=== PATIENT | female | born 1975 | race Caucasian/White ===

== ENCOUNTER → 2020-02-22 | Emergency (ER) | payer OTHER ==
[~2020-02-22] VITALS: Ht 172.7 cm; Wt 110.0 kg
[~2020-02-22] MED LIST: IV NORMAL SALINE 1,000ML 1,000 ML IV ONE; METOCLOPRAMIDE HCL 10 MG/2 ML VIAL. IVP ONE; diphenhydrAMINE 50 MG/ML VIAL IVP ONE
[2020-02-22 12:20] LABS: BASO # 0.1 x10^3/uL (0.0-0.2); BASO % 1 % (0-3); EOS # 0.4 x10^3/uL (0.0-0.7); EOS % 4 % (0-3); HEMATOCRIT 43.4 % (36.0-47.0); LYMPH # 3.2 x10^3/uL (1.0-4.8); LYMPH % 34 % (24-48); MEAN CORPUSCULAR HEMOGLOBIN 32 pg (25-35); MEAN CORPUSCULAR HGB CONC 35 g/dL (31-37); MEAN CORPUSCULAR VOLUME 91 fL (79-100); MONO # 0.4 x10^3/uL (0.0-1.1); MONO % 5 % (0-9); NEUT # 5.2 x10^3uL (1.8-7.7); NEUT % 57 % (31-73); PLATELET COUNT 366 x10^3/uL (140-400); RED BLOOD COUNT 4.76 x10^6/uL (3.50-5.40); RED CELL DISTRIBUTION WIDTH 12.6 % (11.5-14.5); WHITE BLOOD COUNT 9.3 x10^3/uL (4.0-11.0)
[2020-02-22 12:28] LABS: CALCIUM 9.4 mg/dL (8.5-10.1); CREATININE 0.8 mg/dL (0.6-1.0); GFR 78.7; POTASSIUM 4.6 mmol/L (3.5-5.1)
--- NOTE | 2020-02-22 12:33 | PHYS DOC ---
Past History Past Medical History: Cancer, CVA Past Surgical History: Cancer Surgery Alcohol Use: None Adult General Chief Complaint Chief Complaint: HEADACHE HPI HPI 44-year-old female presents with headache. 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 She was in a coma. This was a couple years ago. The patient was being followed in [place]. She just moved here and has not followed up with a neurologist yet. Patient has a headache today that she rates a 9 out of 10. It is a global pressure sensation. She is very concerned because this headache is similar to the headache she had when she had her bleeding aneurysm. She also had a left-sided mastectomy 2 weeks ago at . She has a lot of fluid collection in her chest area. A drain was not placed during surgery. Patient denies fever chills. She has had some vomiting. Review of Systems Review of Systems Constitutional: chills [] Eyes: Denies change in visual acuity, redness, or eye pain [] HENT: Denies nasal congestion or sore throat [] Respiratory: Denies cough or shortness of breath [] Cardiovascular: No additional information not addressed in HPI [] GI: nausea, vomiting. Denies abdominal pain, bloody stools or diarrhea [] : Denies dysuria or hematuria [] Musculoskeletal: Denies back pain or joint pain [] Integument: Denies rash or skin lesions [] Neurologic: Headache. Denies focal weakness or sensory changes [] Endocrine: Denies polyuria or polydipsia [] All other systems were reviewed and found to be within normal limits, except as documented in this note. Allergies Allergies Allergies Coded Allergies Type Severity Reaction Last Updated Verified penicillin G Allergy Mild 02/22/20 Yes Physical Exam Physical Exam Constitutional: Well developed, well nourished, no acute distress, non-toxic appearance. [] HENT: Normocephalic, atraumatic, bilateral external ears normal, oropharynx moist, no oral exudates, nose normal. [] Eyes: PERRLA, EOMI, conjunctiva normal, no discharge. [] Neck: Normal range of motion, no tenderness, supple, no stridor. [] Cardiovascular:Heart rate regular rhythm, no murmur [] Lungs & Thorax: Bilateral breath sounds clear to auscultation [] Abdomen: Bowel sounds normal, soft, no tenderness, no masses, no pulsatile masses. [] Skin: Warm, dry, no erythema, no rash. [] Back: No tenderness, no CVA tenderness. [] Extremities: No tenderness, no cyanosis, no clubbing, ROM intact, no edema. [] Neurologic: Alert and oriented X 3, normal motor function, normal sensory function, no focal deficits noted. [] Psychologic: Affect normal, judgement normal, mood normal. [] Current Patient Data Vital Signs Vital Signs Date Time Temp Pulse Resp B/P (MAP) Pulse Ox O2 Delivery O2 Flow Rate FiO2 02/22/20 12:12 98.4 82 20 155/100 (118) 99 Room Air Lab Results Laboratory Tests Test 02/22/20 12:08 White Blood Count 9.3 x10^3/uL (4.0-11.0) Red Blood Count 4.76 x10^6/uL (3.50-5.40) Hemoglobin 15.0 g/dL (12.0-15.5) Hematocrit 43.4 % (36.0-47.0) Mean Corpuscular Volume 91 fL (79-100) Mean Corpuscular Hemoglobin 32 pg (25-35) Mean Corpuscular Hemoglobin Concent 35 g/dL (31-37) Red Cell Distribution Width 12.6 % (11.5-14.5) Platelet Count 366 x10^3/uL (140-400) Neutrophils (%) (Auto) 57 % (31-73) Lymphocytes (%) (Auto) 34 % (24-48) Monocytes (%) (Auto) 5 % (0-9) Eosinophils (%) (Auto) 4 % (0-3) H Basophils (%) (Auto) 1 % (0-3) Neutrophils # (Auto) 5.2 x10^3uL (1.8-7.7) Lymphocytes # (Auto) 3.2 x10^3/uL (1.0-4.8) Monocytes # (Auto) 0.4 x10^3/uL (0.0-1.1) Eosinophils # (Auto) 0.4 x10^3/uL (0.0-0.7) Basophils # (Auto) 0.1 x10^3/uL (0.0-0.2) EKG EKG [] Radiology/Procedures Radiology/Procedures [] Impressions: CT Head W/O Contrast: History: Headache Comparison: none Axial images were obtained without contrast. The coates and white matter appears normal and symmetrical for the patients age. There is no mass effect, extraaxial fluid collections or hydrocephalus. There is no gross bleed. There is no focal loss of coates-white matter distinction to suggest acute ischemia, i.e. stroke. There is beam Perkins artifact from prior coiling of an aneurysm at the [place]. Impression: No acute findings. RS Compliance Statement: One or more of the following individualized dose reduction techniques were utilized for this examination: 1. Automated exposure control 2. Adjustment of the mA and/or kV according to patient size 3. Use of iterative reconstruction technique Electronically signed by: Cristobal Fox III, MD (02/22/2020 12:33 PM) [id number] DICTATED AND SIGNED BY: CRISTOBAL FOX III, MD DATE: 02/22/20 1233 CC: CHRIS FOX DO; SISI IBARRA DO, MPH ~ Examination: Limited right breast ultrasound. INDICATION: Right breast swelling and pain after a fall. Patient is a 44-year-old woman with a history of BRCA2 mutation status post bilateral mastectomy with implant reconstruction. Her previous right breast implant was septic and required explantation. The new right implant is 2 weeks old. COMPARISON: None available Technique: Grayscale ultrasound of the right breast was performed on the area of particular concern for pain and tenderness as well as around the implant. From the 12:00 position through the 9:00 position. FINDINGS: Right breast implant is present with reverberation artifact at the 12:00 position. At the 7:00 position with the patient is complaining of greatest discomfort, a fluid collection is present that abuts the implant at the 4:00 position contains linear hypoechoic tissue that could reflect thrombus of fatty debris. A fluid collection around the implant spends the majority of the inferior aspect of the breast most conspicuous at the 3 and 4:00 positions at the 7-9 o'clock positions. By ultrasound, this most likely represents a postoperative seroma. However, confirmation of the presence or absence of implant rupture would best be performed with mammography. IMPRESSION: Incomplete. Right breast needs additional imaging with correlation with right diagnostic mammogram and comparison with previous right breast images if available. This can be performed on a nonemergent basis and reported separately. BI-RADS Category 0 Incomplete. Needs additional imaging evaluation Recommend right diagnostic mammogram. This is not currently available through the emergency room so our staff will contact the patient or primary care provider to schedule recommend follow-up. Electronically signed by: Jose Raul Cross MD (02/22/2020 1:41 PM) [id number] DICTATED AND SIGNED BY: JOSE RAUL CROSS MD DATE: 02/22/20 1347 CC: CHRIS FOX DO; SISI IBARRA DO, MPH ~ Course & Med Decision Making Course & Med Decision Making Pertinent Labs and Imaging studies reviewed. (See chart for details) Patient's head CT is negative for significant acute findings. For her headache a give the patient 50 mg of Benadryl and 10 mg of Reglan as well as a liter of normal saline. Her right breast after implant surgery is much more swollen than the left. A ultrasound was performed. The radiologist cannot tell whether or not is a ruptured implant or if it is just seroma around the implant. I explained this to the patient she will follow-up with her surgeon. She is f eeling much better at this time would like to go home. She is stable for discharge at this time. [] Dragon Disclaimer Dragon Disclaimer This electronic medical record was generated, in whole or in part, using a voice recognition dictation system. Departure Departure: Impression: Primary Impression: Headache Additional Impression: Complication of seroma of breast after procedure Disposition: HOME, SELF-CARE Condition: STABLE Referrals: SISI IBARRA DO, MPH (PCP) Problem Qualifiers Primary Impression: Headache Headache type: other vascular headache Qualified Codes: G44.1 - Vascular headache, not elsewhere classified CHRIS FOX DO Feb 22, 2020 12:33
[2020-02-22 12:34] LABS: ALBUMIN 3.9 g/dL (3.4-5.0); ALBUMIN/GLOBULIN RATIO 1.1 (1.0-1.7); TOTAL BILIRUBIN 0.3 mg/dL (0.2-1.0); TOTAL PROTEIN 7.4 g/dL (6.4-8.2)
--- NOTE | 2020-02-22 12:36 | RAD ---
CT Head W/O Contrast: History: Headache Comparison: none Axial images were obtained without contrast. The coates and white matter appears normal and symmetrical for the patients age. There is no mass effect, extraaxial fluid collections or hydrocephalus. There is no gross bleed. There is no focal loss of coates-white matter distinction to suggest acute ischemia, i.e. stroke. There is beam Perkins artifact from prior coiling of an aneurysm at the [place]. Impression: No acute findings. RS Compliance Statement: One or more of the following individualized dose reduction techniques were utilized for this examination: 1. Automated exposure control 2. Adjustment of the mA and/or kV according to patient size 3. Use of iterative reconstruction technique Electronically signed by: Lincoln Chan III, MD (02/22/2020 12:33 PM) [id number]
--- NOTE | 2020-02-22 12:36 | RAD ---
Chest AP portable at 1210: Reason for examination: Headache. The heart size is normal. Mediastinum is unremarkable. Lung guerrero are clear. No acute bony abnormalities are seen. Surgical clips are seen in the axilla. Impression: No acute cardiopulmonary disease. Electronically signed by: Shauna Dasilva MD (02/22/2020 12:33 PM) [id number]
[2020-02-22 12:57] VITALS: BP 118/76
[2020-02-22 13:36] LABS: BILIRUBIN,URINE NEG (NEG); CLARITY,URINE CLEAR; COLOR,URINE STRAW; GLUCOSE,URINE NEG (NEG)
[2020-02-22 13:37] LABS: NITRITE,URINE NEG (NEG); UROBILINOGEN,URINE 0.2 mg/dL (0.2 mg/dL)
[2020-02-22 13:42] LABS: RBC,URINE OCC /HPF (0-2); WBC,URINE 0 /HPF (0-4)
[2020-02-22 13:43] LABS: BACTERIA,URINE FEW /HPF (0-FEW); SQUAMOUS EPITHELIAL CELL,UR MOD /LPF
[2020-02-22 13:44] LABS: AMORPHOUS SEDIMENT,UR PRESENT /HPF
--- NOTE | 2020-02-22 13:44 | RAD ---
Examination: Limited right breast ultrasound. INDICATION: Right breast swelling and pain after a fall. Patient is a 44-year-old woman with a history of BRCA2 mutation status post bilateral mastectomy with implant reconstruction. Her previous right breast implant was septic and required explantation. The new right implant is 2 weeks old. COMPARISON: None available Technique: Grayscale ultrasound of the right breast was performed on the area of particular concern for pain and tenderness as well as around the implant. From the 12:00 position through the 9:00 position. FINDINGS: Right breast implant is present with reverberation artifact at the 12:00 position. At the 7:00 position with the patient is complaining of greatest discomfort, a fluid collection is present that abuts the implant at the 4:00 position contains linear hypoechoic tissue that could reflect thrombus of fatty debris. A fluid collection around the implant spends the majority of the inferior aspect of the breast most conspicuous at the 3 and 4:00 positions at the 7-9 o'clock positions. By ultrasound, this most likely represents a postoperative seroma. However, confirmation of the presence or absence of implant rupture would best be performed with mammography. IMPRESSION: Incomplete. Right breast needs additional imaging with correlation with right diagnostic mammogram and comparison with previous right breast images if available. This can be performed on a nonemergent basis and reported separately. BI-RADS Category 0 Incomplete. Needs additional imaging evaluation Recommend right diagnostic mammogram. This is not currently available through the emergency room so our staff will contact the patient or primary care provider to schedule recommend follow-up. Electronically signed by: Ariel Cross MD (02/22/2020 1:41 PM) [id number]
== END | disposition home or self-care (01) ==
LOC: ER 11:53
DX: R51 Headache (principal); L76.82 Other postprocedural complications of skin and subcutaneous tissue; Z88.0 Allergy status to penicillin
CPT/HCPCS: 36415; 70450; 71045; 76641; 80053; 81001; 85025; 85610; 85730; 96361; 96374; 96375; 99285; J1200; J2765; J7030

== ENCOUNTER 2021-10-21 13:09 | Emergency (ER) | payer OTHER ==
[~2021-10-21] VITALS: Ht 157.5 cm; Wt 86.0 kg
--- NOTE | 2021-10-21 13:28 | PHYS DOC ---
Past History Past Medical History: Cancer, CVA Past Surgical History: Cancer Surgery Alcohol Use: None General Adult EDM: Chief Complaint: CHEST PAIN HPI: HPI: Patient is a 46-year-old female coming in for bilateral upper chest pain for the past 2 days. Patient states she is also had nausea and vomiting for the past 5 days. States the pain is worse with palpation and taking a deep breath. Has a history significant for hypertension, bilateral stage I breast cancer, aneurysm required 7 coils in 2018. Patient does not take any blood thinners. She has not had her Covid or flu vaccines this year. Patient states she had a bilateral breast reconstruction at 8 months ago. Review of Systems: Review of Systems: All other systems within normal limits except for as noted in the HPI Allergies: Allergies: Allergies Coded Allergies Type Severity Reaction Last Updated Verified penicillin G Allergy Mild 02/22/20 Yes Physical Exam: PE: Constitutional: Well developed, well nourished, no acute distress, non-toxic appearance. [] HENT: Normocephalic, atraumatic, bilateral external ears normal, nose normal. [] Eyes: PERRLA, conjunctiva normal, no discharge. [] Neck: No rigidity, supple, no stridor. [] Cardiovascular: Regular rate and rhythm, brisk cap refill. Symmetric radial pulses [] Lungs & Thorax: Non labored symmetric respirations, no tachypnea or respiratory distress. Bilateral breath sounds clear all station [] Abdomen: Soft, nondistended. Skin: Warm, dry, no erythema, no rash. [] Back: Unremarkable Extremities: No deformities, range of motion grossly intact, no lower extremity edema [] Neurologic: Alert and oriented X 3, no focal deficits noted. [] Psychologic: Affect normal, judgement normal, mood normal. [] EKG: EKG: Sinus rhythm, heart rate 100 bpm, right bundle branch block, no ST elevation or depression, no ectopy. [] Radiology/Procedures: Radiology/Procedures: [address] [address] IMAGING REPORT Signed PATIENT: HENRY HOLLIDAY ACCOUNT: [id number] : 1975 LOCATION: ER AGE: 46 SEX: F EXAM STATUS: REG ER ORD. PHYSICIAN: FLO KURTZ MD REASON: chest pain PROCEDURE: CT ANGIOGRAPHY CHEST EXAM: CT angiography of the chest with intravenous contrast. HISTORY: Pain. TECHNIQUE: Computed tomographic images of the chest were obtained following the administration of intravenous contrast according to angiography protocol. Multiplanar reformatting was performed and three dimensional maximum intensity projection images were obtained. *One or more of the following individualized dose reduction techniques were utilized for this examination: 1. Automated exposure control. 2. Adjustment of the mA and/or kV according to patient size. 3. Use of iterative reconstruction technique. COMPARISON: None. FINDINGS: The heart is normal in size. The aorta is normal in caliber. There is no dissection. There is no pulmonary embolism. There is no lymphadenopathy. There is no pneumothorax. There is no pleural effusion. There is bilateral posterior dependent groundglass opacity likely due to atelectasis. There are implanted breast prostheses. There is no acute finding involving the upper abdomen or osseous structures. IMPRESSION: No evidence of pulmonary embolism or alternative acute thoracic finding. Electronically signed by: Shanda Baker MD (10/21/2021 2:23 PM) [id number] DICTATED AND SIGNED BY: SHANDA BAKER MD DATE: 10/21/21 142 CC: FLO KURTZ MD; SISI IBARRA DO, MPH ~MTH0 0 [] Heart Score: C/O Chest Pain: Yes HEART Score for Chest Pain: HEART Score for Chest Pain Response (Comments) Value History Slighlty/Non-Suspicious 0 ECG Nonspecific Repolarizatio 1 Age < 45 0 Risk Factors 1 or 2 Risk Factors 1 Troponin < Normal Limit 0 Total 2 Risk Factors: Risk Factors: DM, Current or recent (<one month) smoker, HTN, HLP, family history of CAD, obesity. Risk Scores: Score 0 - 3: 2.5% MACE over next 6 weeks - Discharge Home Score 4 - 6: 20.3% MACE over next 6 weeks - Admit for Clinical Observation Score 7 - 10: 72.7% MACE over next 6 weeks - Early Invasive Strategies Course & Med Decision Making: Course & Med Decision Making Pertinent Labs and Imaging studies reviewed. (See chart for details) Patient states that she stopped taking her opioid medications recently because she wanted to be off of opiate medications [] Dragon Disclaimer: Dragon Disclaimer: This electronic medical record was generated, in whole or in part, using a voice recognition dictation system. Departure Departure: Impression: Primary Impression: Chest pain Additional Impression: Nausea & vomiting Disposition: 01 HOME / SELF CARE / HOMELESS Condition: STABLE Referrals: SISI IBARRA DO, MPH (PCP) Patient Instructions: Nausea and Vomiting Scripts Ibuprofen (IBUPROFEN) 800 Mg Tablet 1 TAB PO TID PRN for PAIN, #30 TAB Prov: FLO KURTZ MD 10/21/21 Ondansetron (ONDANSETRON ODT) 4 Mg Tab.rapdis 1 TAB PO PRN Q6-8HRS PRN for NAUSEA, #16 TAB Prov: FLO KURTZ MD 10/21/21 FLO KURTZ MD Oct 21, 2021 13:28
[2021-10-21] MEDS ORDERED: ONDANSETRON PF 4 MG/2 ML VIAL. IVP ONE (13:30)
[2021-10-21] MEDS ORDERED: IV NORMAL SALINE 1,000ML 1,000 ML IV ONE (13:30)
[2021-10-21] MEDS ORDERED: ASPIRIN CHEWABLE 81 MG TABLET. PO ONE (13:30)
[2021-10-21] MEDS ORDERED: IOHEXOL 350 MG/ML 100 ML VIAL. IV ONE (13:45)
[2021-10-21 14:01] LABS: BASO # 0.1 x10^3/uL (0.0-0.2); BASO % 1 % (0-3); EOS # 0.1 x10^3/uL (0.0-0.7); EOS % 1 % (0-3); HEMATOCRIT 42.5 % (36.0-47.0); HEMOGLOBIN 14.5 g/dL (12.0-15.5); LYMPH # 2.9 x10^3/uL (1.0-4.8); LYMPH % 38 % (24-48); MEAN CORPUSCULAR HEMOGLOBIN 32 pg (25-35); MEAN CORPUSCULAR HGB CONC 34 g/dL (31-37); MEAN CORPUSCULAR VOLUME 92 fL (79-100); MONO # 0.5 x10^3/uL (0.0-1.1); MONO % 6 % (0-9); NEUT # 4.1 x10^3uL (1.8-7.7); NEUT % 54 % (31-73); PLATELET COUNT 372 x10^3/uL (140-400); WHITE BLOOD COUNT 7.6 x10^3/uL (4.0-11.0)
[2021-10-21 14:14] LABS: CALCIUM 9.1 mg/dL (8.5-10.1); CREATININE 0.8 mg/dL (0.6-1.0); GFR 77.9; POTASSIUM 4.4 mmol/L (3.5-5.1)
--- NOTE | 2021-10-21 14:26 | RAD ---
EXAM: CT angiography of the chest with intravenous contrast. HISTORY: Pain. TECHNIQUE: Computed tomographic images of the chest were obtained following the administration of int ravenous contrast according to angiography protocol. Multiplanar reformatting was performed and three dimensional maximum intensity projection images were obtained. *One or more of the following individualized dose reduction techniques were utilized for this examina tion: 1. Automated exposure control. 2. Adjustment of the mA and/or kV according to patient size. 3. Use of iterative reconstruction technique. COMPARISON: None. FINDINGS: The heart is normal in size. The aorta is normal in caliber. There is no dissection. There is no pulmonary embolism. There is no lymphadenopathy. There is no pneumothorax. There is no pleural effusion. There is bilateral posterior dependent groundglass opacity likely due to atelectasis. There are implanted breast prostheses. There is no acute finding involving the upper abdomen or osseous st ructures. IMPRESSION: No evidence of pulmonary embolism or alternative acute thoracic finding. Electronically signed by: Shanda Sim MD (10/21/2021 2:23 PM) [id number]
[2021-10-21 14:28] LABS: ALBUMIN 4.1 g/dL (3.4-5.0); ALBUMIN/GLOBULIN RATIO 1.4 (1.0-1.7); MAGNESIUM 2.1 mg/dL (1.8-2.4); PHOSPHORUS 3.4 mg/dL (2.6-4.7); TOTAL BILIRUBIN 0.9 mg/dL (0.2-1.0); TOTAL PROTEIN 7.1 g/dL (6.4-8.2)
[2021-10-21 15:04] LABS: INFLUENZA A PATIENT NEGATIVE (NEGATIVE); INFLUENZA B PATIENT NEGATIVE (NEGATIVE)
[2021-10-21] MEDS ORDERED: ONDA4TAB12 PO (15:17)
[2021-10-21] MEDS ORDERED: IBUP800T19 PO (15:17)
[2021-10-21 15:45] VITALS: BP 93/60
--- NOTE | 2021-10-22 04:16 | EKG ---
[address] [address] Test Date: 2021-10-21 Test Time: 13:16:27 Pat Name: HENRY HOLLIDAY Department: Room: Gender: F Judicial Assistant: : 1975 Requested By: FLO KURTZ Order Number: [id number] Reading MD: Dimitri Morton Measurements Intervals [place] Rate: 100 P: 15 MA: 124 QRS: 56 QRSD: 86 T: -5 QT: 356 QTc: 462 Interpretive Statements SINUS RHYTHM S1,S2,S3 PATTERN INCOMPLETE RIGHT BUNDLE BRANCH BLOCK Electronically Signed On 10-23-2021 9:52:10 SURVEY QUESTIONNAIRE DESIGNER by Dimitri Morton
== END 2021-10-21 16:00 | disposition home or self-care (01) ==
LOC: ER 13:09
DX: R07.89 Other chest pain (principal); R11.2 Nausea with vomiting, unspecified; I10 Essential (primary) hypertension; Z88.0 Allergy status to penicillin; Z86.73 Personal history of transient ischemic attack (TIA), and cerebral infarction without residual deficits; Z20.822 Contact with and (suspected) exposure to COVID-19
CPT/HCPCS: 71275; 80053; 83690; 83735; 83880; 84100; 84484; 85025; 85379; 85610; 87804; 93005; 96361; 96374; 96375; 96376; 99285; C9803; J2405; J3010; J7030; Q9967; U0003